=== PATIENT | male | born 1990 | race Hispanic/Latino ===

== ENCOUNTER 2018-10-03 16:57 | Emergency (ER) | payer OTHER ==
[2018-10-03 17:10] VITALS: BP 120/81; PULSE 89; RESP 16; TEMP 97.7; O2SAT 99
[2018-10-03 18:00] LABS: BASO % 0.4 % (0.0-2.0); EOS # 0.1 K/uL (0.0-0.7); EOS % 1.7 % (0.0-4.0); HEMOGLOBIN 12.7 g/dL (12.0-18.0); LYMPH # 2.4 K/uL (1.0-4.3); LYMPH % 28.6 % (20.0-40.0); MEAN CELL VOLUME 84.3 fl (80.0-94.0); MEAN CORPUSCULAR HEMOGLOBIN 27.4 pg (27.0-31.0); MEAN CORPUSCULAR HGB CONC 32.5 g/dL (33.0-37.0); MEAN PLATELET VOLUME 6.8 fl (7.2-11.7); MONO # 0.9 K/uL (0.0-0.8); NEUT # 4.8 K/uL (1.8-7.0); NEUT % 58.3 % (50.0-75.0); RBC 4.64 Mil/uL (4.40-5.90); RED CELL DISTRIBUTION WIDTH 13.3 % (11.5-14.5); WHITE BLOOD COUNT 8.3 K/uL (4.8-10.8)
[2018-10-03 18:03] LABS: URINE BILIRUBIN NEGATIVE (NEGATIVE); URINE BLOOD NEGATIVE (NEGATIVE); URINE CLARITY CLEAR (Clear); URINE COLOR STRAW (YELLOW); URINE GLUCOSE (UA) NEG (NEGATIVE); URINE LEUKOCYTE ESTERASE NEG Leu/uL (Negative); URINE PROTEIN NEGATIVE (NEGATIVE); URINE UROBILINOGEN 0.2-1.0 mg/dL (0.2-1.0)
[2018-10-03 18:35] LABS: ALB/GLOB RATIO 1.3 (1.0-2.1); ALBUMIN 4.2 g/dL (3.5-5.0); ALT/SGPT 50 U/L (21-72); AST/SGOT 53 U/L (17-59); BLOOD UREA NITROGEN 13 mg/dl (9-20); GFR NON-AFRICAN AMERICAN > 60; URIC ACID 4.6 mg/Dl (3.5-8.5)
--- NOTE | 2018-10-03 19:02 | ED PDOC ---
HPI: Back Time Seen by Provider: 10/03/18 17:15 Chief Complaint (Nursing): Abdominal Pain Chief Complaint (Provider): Flank Pain History Per: Patient History/Exam Limitations: no limitations Onset/Duration Of Symptoms: Days (x 5-6) Current Symptoms Are (Timing): Still Present Quality Of Discomfort: "Pain" Exacerbating Factor(s): Movement Additional Complaint(s): 28 year old male with a history of Crohn's disease presents to the ED for evaluation of atraumatic bilateral flank pain, greatest on his left side, for 5- 6 days. Patient states pain presents mostly in the morning and progressively improves throughout the day. Pain worsens with movement. He reports a visit to urgent care five days ago where he was told there is a small amount of blood in his urine and advised to come to the ED if symptoms worsen. He also complains of chills for three days, but has not taken his temperature. Patient takes Advil with transient relief. Currently reports atraumatic great toe pain as well as swelling yesterday which has since resolved. Denies chest pain, SOB, hematuria, incontinence, trauma, history of gout, kidney stones, nausea, vomiting and pain. PMD: Dr. Holbrook Past Medical History Reviewed: Historical Data, Nursing Documentation, Vital Signs Vital Signs: Last Vital Signs Temp 97.7 F 10/03/18 17:06 Pulse 89 10/03/18 17:06 Resp 16 10/03/18 17:06 BP 120/81 10/03/18 17:06 Pulse Ox 99 10/03/18 17:06 - Medical History PMH: Crohn's Disease - Surgical History Other surgeries: colectomy - 13 y/o - Family History Family History: States: Unknown Family Hx - Home Medications Home Medications: Ambulatory Orders Medication Instructions Recorded Cyclobenzaprine [Cyclobenzaprine 10 mg PO Q8 PRN #10 tab 10/03/18 HCl] Tramadol HCl [Ultram] 50 mg PO BID PRN #5 tablet 10/03/18 - Allergies Allergies/Adverse Reactions: Allergies Allergy/AdvReac Type Severity Reaction Status Date / Time No Known Allergies Allergy Verified 10/03/18 17:05 Review of Systems ROS Statement: Except As Marked, All Systems Reviewed And Found Negative Constitutional: Positive for: Chills. Negative for: Fever Gastrointestinal: Negative for: Nausea, Vomiting, Diarrhea Genitourinary Male: Negative for: Dysuria, Frequency, Incontinence, Hematuria Musculoskeletal: Positive for: Back Pain (flank pain bilaterally; greater on left), Foot Pain (left great toe pain) Physical Exam - Reviewed Nursing Documentation Reviewed: Yes Vital Signs Reviewed: Yes - Physical Exam Appears: Positive for: Well, Non-toxic, No Acute Distress Head Exam: Positive for: ATRAUMATIC, NORMAL INSPECTION, NORMOCEPHALIC Skin: Positive for: Normal Color, Warm, Dry. Negative for: Rash Eye Exam: Positive for: EOMI, Normal appearance, PERRL Cardiovascular/Chest: Positive for: Regular Rate, Rhythm. Negative for: Murmur Respiratory: Positive for: Normal Breath Sounds. Negative for: Wheezing, Respiratory Distress Gastrointestinal/Abdominal: Positive for: Normal Exam, Soft. Negative for: Ten derness Back: Positive for: Normal Inspection. Negative for: L CVA Tenderness, R CVA Tenderness, Vertebral Tenderness Extremity: Positive for: Normal ROM (x 4). Negative for: Tenderness (swelling, warmth or erythema in bilateral feet), Calf Tenderness, Deformity Neurologic/Psych: Positive for: Alert, Oriented (x 3). Negative for: Motor/Sensory Deficits - Laboratory Results Result Diagrams: 10/03/18 17:56 10/03/18 17:56 Lab Results: Total Bilirubin 0.2 mg/dl (0.2-1.3) 10/03/18 17:56 AST 53 U/L (17-59) 10/03/18 17:56 ALT 50 U/L (21-72) 10/03/18 17:56 Alkaline Phosphatase 67 U/L (38-126) 10/03/18 17:56 Total Protein 7.3 G/DL (6.3-8.2) 10/03/18 17:56 Albumin 4.2 g/dL (3.5-5.0) 10/03/18 17:56 Globulin 3.2 gm/dL (2.2-3.9) 10/03/18 17:56 Albumin/Globulin Ratio 1.3 (1.0-2.1) 10/03/18 17:56 Urine Color Straw (YELLOW) 10/03/18 17:56 Urine Clarity Clear (Clear) 10/03/18 17:56 Urine pH 6.0 (5.0-8.0) 10/03/18 17:56 Ur Specific [place] < 1.005 (1.003-1.030) 10/03/18 17:56 Urine Protein Negative mg/dL (NEGATIVE) 10/03/18 17:56 Urine Glucose (UA) Neg mg/dL (NEGATIVE) 10/03/18 17:56 Urine Ketones Negative mg/dL (NEGATIVE) 10/03/18 17:56 Urine Blood Negative (NEGATIVE) 10/03/18 17:56 Urine Nitrate Negative (NEGATIVE) 10/03/18 17:56 Urine Bilirubin Negative (NEGATIVE) 10/03/18 17:56 Urine Urobilinogen 0.2-1.0 mg/dL (0.2-1.0) 10/03/18 17:56 Ur Leukocyte Esterase Neg Maurice/uL (Negative) 10/03/18 17:56 Urine RBC (Auto) 1 /hpf (0-3) 10/03/18 17:56 Urine Microscopic WBC < 1 /hpf (0-5) 10/03/18 17:56 - ECG O2 Sat by Pulse Oximetry: 99 (RA) Pulse Ox Interpretation: Normal - Progress ED Course And Treament: Ultram and flexeril will be prescribed. Informed of addiction potential with Ultram. Advised on minimal use and is to take ultram only if Tylenol does not work. Pt. searched on [place] [facility] TECHNICIAN aware which shows last known narcotic Rx was given on 08/22/2018 for adderall but none to narcotic pain meds. Re-evaluation Time: 19:15 (Sleeping comfortably. Easily arousable. Reports good relief of pain. Informed of all results. Advised to f/u with PMD and container maker for further evaluation but is to return to ED immediately if symptoms worsen. Also told to avoid NSAID use due to hx of Crohn's. Verbalized correct understanding of plan and care.) Condition: Re-examined, Improved Medical Decision Making Medical Decision Makin:28 Impression: flank and toe pain Initial Plan: --CT Abd & pelvis --CMP --CBC --ESR --uric acid --Tylenol 975 mg PO --Ultram 50 mg PO --Left foot x-ray --UA Scribe Attestation: Documented by Daniela Ro acting as a scribe for Victor Hugo Teran PA-C Provider Scribe Attestation: All medical record entries made by the Scribe were at my direction and personally dictated by me. I have reviewed the chart and agree that the record accurately reflects my personal performance of the history, physical exam, medical decision making, and the department course for this patient. I have also personally directed, reviewed, and agree with the discharge instructions and disposition. Disposition - Clinical Impression Clinical Impression: Foot pain, Back pain - Patient ED Disposition Is Patient to be Admitted: No - Disposition Referrals: [email or web address] [Outside] Edwin Doty DPM [Staff Provider] - Disposition: Routine/Home Disposition Time: 19:54 Condition: IMPROVED Additional Instructions: FOLLOW UP WITH PMD AND ACADEMIC PROGRAM SPECIALIST FOR FURTHER EVALUATION RETURN TO ED IMMEDIATELY IF SYMPTOMS WORSEN YVONNE HOLLEY, thank you for letting us take care of you today. Your provider was Jonathan Tucker MD and you were treated for BACK PAIN. The emergency medical care you received today was directed at your acute symptoms. If you were prescribed any medication, please fill it and take as directed. It may take several days for your symptoms to resolve. Return to the Emergency Department if your symptoms worsen, do not improve, or if you have any other problems. Please contact your doctor or call one of the physicians/clinics you have been referred to that are listed on the Patient Visit Information form that is included in your discharge packet. Bring any paperwork you were given at discharge with you along with any medications you are taking to your follow up visit. Our treatment cannot replace ongoing medical care by a primary care provider outside of the emergency department. Thank you for allowing the [facility] team to be part of your care today. If you had an X-Ray or CT scan: A Radiologist will review the ED reading if any change in treatment is needed we will contact you. If you had a blood, urine, or wound culture: It will take several days for the results, if any change in treatment is needed we will contact you. If you had an STI test: It will take 48 hours for the results. Please call after 1 week if you have not heard back. Prescriptions: Cyclobenzaprine [Cyclobenzaprine HCl] 10 mg PO Q8 PRN #10 tab PRN Reason: Muscle Spasm Tramadol HCl [Ultram] 50 mg PO BID PRN #5 tablet PRN Reason: Pain Instructions: Metatarsalgia (DC), Upper Back Pain (DC) Forms: [employer] (Urdu) Print Language: ALBANIAN
--- NOTE | 2018-10-04 08:14 | RAD ---
Date of service: 10/03/2018 PROCEDURE: Left Foot Radiographs. HISTORY: pain COMPARISON: None. FINDINGS: BONES: No acute fracture or destructive bony lesion identified. JOINTS: Normal. SOFT TISSUES: Normal. OTHER FINDINGS: None. IMPRESSION: Normal left foot radiographs.
--- NOTE | 2018-10-04 09:33 | CT ---
Date of service: 10/03/2018 PROCEDURE: CT Abdomen and Pelvis without intravenous contrast HISTORY: b/l flank pain; recent prior history of hematuria from outside institution. COMPARISON: None. TECHNIQUE: Helical CT of the abdomen and pelvis was performed without oral or intravenous contrast as per referring physician request. Coronal and sagittal reformats were generated.. Contrast dose: None Radiation dose: Total exam DLP = 477.16 mGy-cm. This CT exam was performed using one or more of the following dose reduction techniques: Automated exposure control, adjustment of the mA and/or kV according to patient size, and/or use of iterative reconstruction technique. FINDINGS: LOWER THORAX: Unremarkable. LIVER: Unremarkable. No gross lesion or ductal dilatation. GALLBLADDER AND BILE DUCTS: Unremarkable. PANCREAS: Unremarkable. No gross lesion or ductal dilatation. SPLEEN: Unremarkable. ADRENALS: Unremarkable. No mass. KIDNEYS AND URETERS: No overt CT pattern of hematuria in the urinary bladder ureters or the bilateral kidneys. No radiodense urolithiasis, perinephric fluid collection or obstructive uropathy is appreciate bilaterally. The bilateral ureters appear normal caliber overall. VASCULATURE: Unremarkable. No aortic aneurysm. No aortic atherosclerotic calcification or mural plaque present. BOWEL: Stomach is mildly distend with retained food and fluid. No bowel obstruction identified. Fatty changes are identified affecting cecum and proximal ascending colon as well as the rectosigmoid and ileum. Thickening of the ileal terrazas is suspected with haziness at the outer margins of the terrazas suspicious for limited edema or reaction at the junction with the mesentery. Consider acute superimposed on chronic ileitis with chronic large bowel inflammation in segments. This fits the patient's prior history of Crohn's disease with ulcerative colitis and backwash ileitis the differential diagnosis though unlikely given prior history. APPENDIX: Unremarkable. Normal appendix. PERITONEUM: Unremarkable. No free fluid. No free air. LYMPH NODES: Unremarkable. No enlarged lymph nodes. BLADDER: Unremarkable. REPRODUCTIVE: Unremarkable. BONES: No acute fracture. OTHER FINDINGS: None. IMPRESSION: Findings likely reflect acute superimposed on chronic ileitis with chronic inflammation changes related to the cecum and ascending colon as well as rectosigmoid in this patient with a history of Crohn's disease. Overall pattern is compatible with that diagnosis. Please see discussion above. No bowel obstruction, ascites or free intra peritoneal gas collection. No gross hematuria. Discordant results from [facility] preliminary interpretation 10/03/2018 7:13 p.m.. Findings discussed with Dr. Goff with written down and read back verification 10/04/2018 9:29 a.m..
== END 2018-10-03 20:22 | disposition home or self-care (01) ==
LOC: H.ER 16:57
DX: M54.9 Dorsalgia, unspecified (principal); M79.672 Pain in left foot; M79.671 Pain in right foot; K50.90 Crohn's disease, unspecified, without complications